=== PATIENT | male | born 1995 | race African-American/Black ===

== ENCOUNTER 2022-04-26 23:56 | Emergency (ER) | payer SELFPAY ==
[~2022-04-26] VITALS: Ht 167.6 cm; Wt 93.8 kg
[2022-04-27 00:25] VITALS: BP 123/72
[2022-04-27 03:13] LABS: BASOPHILS % 0.3 % (0.0-2.0); EOSINOPHILS % 0.2 % (0.0-5.0); HEMATOCRIT. 45.2 % (42.0-52.0); HEMOGLOBIN. 14.8 g/dL (14.0-18.0); LYMPHOCYTES % 12.4 % (20.0-50.0); MEAN CORPUSCULAR HEMOGLOBIN 30.3 pg (28.0-32.0); MEAN CORPUSCULAR VOLUME 92.2 fL (80.0-94.0); MEAN PLATELET VOLUME 8.5 fl (7.4-10.4); MONOCYTES % 9.6 % (2.0-8.0); NEUTROPHILS % 77.5 % (40.0-76.0); PLATELET 256 x1000/uL (130-400); RED CELL DISTRIBUTION WIDTH 14.5 % (11.6-14.6)
[2022-04-27 03:21] LABS: PROTHROMBIN TIME 10.7 sec (9.6-11.0)
[2022-04-27 03:23] LABS: CHLORIDE 103 mEq/L (98-107)
[2022-04-27] MEDS ORDERED: ONDA4TAB50 MT (04:14)
[2022-04-27] MEDS ORDERED: PROT20 MT (04:14)
== END 2022-04-27 04:36 | disposition home or self-care (01) ==
LOC: ER 23:56
DX: K21.9 Gastro-esophageal reflux disease without esophagitis (principal); R05.9 Cough, unspecified
CPT/HCPCS: 36415; 80053; 85025; 99283